=== PATIENT | female | born 1965 | race Caucasian/White ===

== ENCOUNTER → 2017-12-10 | Outpatient (CLI) | payer OTHER ==
[~2017-12-10] MED LIST: EPP3/2 IM
== END | disposition home or self-care (01) ==
LOC: C.PAPS 08:06
PROVIDERS: ATTEND Obstetrics & Gynecology
DX: Z12.4 Encounter for screening for malignant neoplasm of cervix (principal)

== ENCOUNTER 2017-12-20 16:32 | Observation (INO) | payer OTHER ==
[~2017-12-20] VITALS: Ht 162.6 cm; Wt 73.3 kg
[2017-12-20] MEDS ORDERED: SODIUM CHLORIDE 0.9% 1000ML 1,000 ML IV STA (16:42)
[2017-12-20] MEDS ORDERED: PROMETHAZINE HCL INJ 25 MG in SODIUM CHLORIDE 0.9% 50ML 50 ML IV STA (16:42)
[2017-12-20] MEDS ORDERED: DiphenhydrAMINE HCL 50 MG/ML VIAL IV STA ×2 (16:42→18:40)
[2017-12-20 17:14] LABS: BASO % 0.3 %; BASO ABS # 0.03 K/uL (0-0.2); EOS % 0.5 %; EOS ABS # 0.05 K/uL (0-0.5); HEMATOCRIT 43.1 % (37-47); HEMOGLOBIN 14.6 g/dL (12.0-16.0); IG# 0.02 K/uL (0.00-0.02); LYMPH % 11.8 %; LYMPH ABS # 1.11 K/uL (1.2-3.4); MEAN CELL VOLUME 86.4 fL (80-100); MEAN CORPUSCULAR HEMOGLOBIN 29.3 pg (25-34); MEAN CORPUSCULAR HGB CONC 33.9 g/dl (32-36); MEAN PLATELET VOLUME 9.4 fL (7.4-10.4); MONO % 5.9 %; MONO ABS # 0.55 K/uL (0.11-0.59); NEUT % 81.3 %; NEUT ABS # 7.62 K/uL (1.4-6.5); PLATELET COUNT 343 K/uL (130-400); RED CELL DISTRIBUTION WIDTH CV 14.3 % (11.5-14.5); RED CELL DISTRIBUTION WIDTH SD 44.6 fL (36.4-46.3); WHITE BLOOD COUNT 9.38 K/uL (4.8-10.8)
--- NOTE | 2017-12-20 17:21 | EMERGENCY ROOM VISIT NOTE ---
History Report prepared by Christie: Bisi Hogan Under the Supervision of: Yas OchoaO. First contact with patient: 16:39 Chief Complaint: HEADACHE Stated Complaint: HEADACHES, NAUSEA History of Present Illness The patient is a 52 year old female who presents to the Emergency Room with complaints of a persistent headache that began 3 days ago. She reports that her headache progressively worsened with time, noting that she began experiencing generalized weakness and nausea. She describes her headache as being in the front of her head and radiating all the way to the back. The patient states that she has been laying in bed for the past 2 days due to the intensity of her symptoms. She notes that she took Aleve and Tylenol, which did not help relieve her symptoms. Her states that she began vomiting shortly after taking some migraine medication. Today, the patient states that she has been slurring her words and continues to feel weak and sore throughout her body. She denies a history of headaches, noting that she does not take any daily medications besides vitamins. The patient states she had breast cancer in the same spot twice, noting it did not spread to any other parts of her body. She mentioned that she is a smoker, but has been smoking much less recently, noting that she only smoked 3 cigarettes yesterday. Source of History: patient Onset: 3 days ago Position: head Quality: other (headache) Timing: other (persistent) Associated Symptoms: + nausea Note: Associated symptoms include: generalized weakness, sore throughout body, and slurring her words. Review of Systems See HPI for pertinent positives & negatives. A total of 10 systems reviewed and were otherwise negative. Past Medical & Surgical Medical Problems: (1) Headache (2) Hypertension (3) Slurred speech (4) Stomach problems Family History Cancer Heart disease Hypertension Social History Smoking Status: Current Every Day Smoker (5 cigs daily) Smokeless Tobacco Use: No Alcohol Use: occasionally (1 drink) Drug Use: none Marital Status: Housing Status: lives with significant other Occupation Status: student Current/Historical Medications Scheduled Epinephrine (Epipen), 0.3 MG IM UD Allergies Coded Allergies: BEE STING (Verified Allergy, Unknown, SHORTNESS OF BREATH, 12/20/17) Physical Exam Vital Signs Date Time Temp Pulse Resp B/P (MAP) Pulse Ox O2 Delivery O2 Flow Rate FiO2 12/20/17 22:31 166/111 12/20/17 22:30 73 21 12/20/17 22:00 60 172/105 93 Room Air 12/20/17 21:11 57 147/102 12/20/17 21:04 65 12/20/17 20:30 63 157/105 91 Room Air 12/20/17 19:32 67 160/103 12/20/17 18:21 73 17 179/126 96 12/20/17 17:10 95 Room Air 12/20/17 17:00 70 12/20/17 16:34 36.7 76 18 158/104 95 Room Air Physical Exam GENERAL: Patient is awake, alert, and in no acute distress. Patient is resting comfortably and showing no signs of anxiety EYES: The conjunctivae are clear. The pupils are round and reactive. EARS, NOSE, MOUTH AND THROAT: The nose is without any evidence of any deformity. Mucous membranes are moist tongue is midline NECK: The neck is nontender and supple. RESPIRATORY: Normal respiratory effort is noted there is no evidence of wheezing rhonchi or rales CARDIOVASCULAR: Regular rate and rhythm noted there no murmurs rubs or gallops normal S1 normal S2 GASTROINTESTINAL: The abdomen is soft. Bowel sounds are present in all quadrants. Abdomen is nontender MUSCULOSKELETAL/EXTREMITIES: There is no evidence of gross deformity full range of motion is noted in the hips and shoulders SKIN: There is no obvious evidence of any rash. There are no petechiae, pallor or cyanosis noted. NEUROLOGIC: Patient is awake alert and oriented x3 strength is symmetric patellar reflexes are 2+ bilaterally Medical Decision & Procedures ER Provider Diagnostic Interpretation: Radiology results as stated below per my review and radiologist interpretation: HEAD WITHOUT CONTRAST (CT) CT DOSE: 537.48 mGy.cm HISTORY: Mental status change WOLFE TECHNIQUE: Multiaxial CT images of the head were performed without the use of intravenous contrast. A dose lowering technique was utilized adhering to the principles of ALARA. Comparison: None. Findings: The paranasal sinuses and mastoid air cells are clear. The calvarium and skull base are intact. The ventricles and sulci are within normal limits. There is no mass, hematoma, midline shift, or acute infarct. Impression: No acute intracranial abnormality. The above report was generated using voice recognition software. It may contain grammatical, syntax or spelling errors. Electronically signed by: Morgan Sanchez M.D. 12/20/2017 5:41 PM Dictated Date/Time: 12/20/2017 5:40 PM HEAD ANGIO WITH CONTRAST CLINICAL HISTORY: Mental status change headache TECHNIQUE: Transaxial acquisition with multi axial reformatted images COMPARISON STUDY: None FINDINGS: All major intracranial vessels are intact. No evidence for aneurysm or major stenotic process. The left vertebral artery is small in caliber. Presumed congenital basis. All major components of the anterior middle and posterior cerebral circulation are unremarkable. IMPRESSION: Negative study The above report was generated using voice recognition software. It may contain grammatical, syntax or spelling errors. Electronically signed by: Morgan Sanchez M.D. 12/20/2017 7:19 PM Dictated Date/Time: 12/20/2017 7:18 PM Laboratory Results 12/20/17 16:18 Red Blood Count 4.99, Mean Corpuscular Volume 86.4, Mean Corpuscular Hemoglobin 29.3, Mean Corpuscular Hemoglobin Concent 33.9, Mean Platelet Volume 9.4, Neutrophils (%) (Auto) 81.3, Lymphocytes (%) (Auto) 11.8, Monocytes (%) (Auto) 5.9, Eosinophils (%) (Auto) 0.5, Basophils (%) (Auto) 0.3, Neutrophils # (Auto) 7.62, Lymphocytes # (Auto) 1.11, Monocytes # (Auto) 0.55, Eosinophils # (Auto) 0.05, Basophils # (Auto) 0.03 12/20/17 16:18 Test 12/20/17 16:18 12/20/17 16:58 12/20/17 20:10 White Blood Count 9.38 K/uL (4.8-10.8) Red Blood Count 4.99 M/uL (4.2-5.4) Hemoglobin 14.6 g/dL (12.0-16.0) Hematocrit 43.1 % (37-47) Mean Corpuscular Volume 86.4 fL (80-100) Mean Corpuscular Hemoglobin 29.3 pg (25-34) Mean Corpuscular Hemoglobin Concent 33.9 g/dl (32-36) Platelet Count 343 K/uL (130-400) Mean Platelet Volume 9.4 fL (7.4-10.4) Neutrophils (%) (Auto) 81.3 % Lymphocytes (%) (Auto) 11.8 % Monocytes (%) (Auto) 5.9 % Eosinophils (%) (Auto) 0.5 % Basophils (%) (Auto) 0.3 % Neutrophils # (Auto) 7.62 K/uL (1.4-6.5) Lymphocytes # (Auto) 1.11 K/uL (1.2-3.4) Monocytes # (Auto) 0.55 K/uL (0.11-0.59) Eosinophils # (Auto) 0.05 K/uL (0-0.5) Basophils # (Auto) 0.03 K/uL (0-0.2) RDW Standard Deviation 44.6 fL (36.4-46.3) RDW Coefficient of Variation 14.3 % (11.5-14.5) Immature Granulocyte % (Auto) 0.2 % Immature Granulocyte # (Auto) 0.02 K/uL (0.00-0.02) Erythrocyte Sedimentation Rate 41 mm/hr (0-21) Anion Gap 8.0 mmol/L (3-11) Est Creatinine Clear Calc Drug Dose 88.0 ml/min Estimated GFR () 110.0 Estimated GFR (Non- 94.9 BUN/Creatinine Ratio 21.6 (10-20) Calcium Level 9.1 mg/dl (8.5-10.1) Magnesium Level 1.9 mg/dl (1.8-2.4) Total Bilirubin 0.4 mg/dl (0.2-1) Direct Bilirubin 0.1 mg/dl (0-0.2) Aspartate Amino Transf (AST/SGOT) 19 U/L (15-37) Alanine Aminotransferase (ALT/SGPT) 22 U/L (12-78) Alkaline Phosphatase 92 U/L (45-117) C-Reactive Protein 0.50 mg/dl (0-0.29) Total Protein 7.4 gm/dl (6.4-8.2) Albumin 4.0 gm/dl (3.4-5.0) Thyroid Stimulating Hormone (TSH) 0.679 uIu/ml (0.300-4.500) Hepatitis C Antibody Screen NEG (NEG) Procalcitonin < 0.05 ng/ml (0-0.5) Lyme Disease IgG Antibody NEG (NEG) Lyme Disease IgM Antibody NEG (NEG) CSF Color COLORLESS CSF Appearance CLEAR CSF WBC 418 /uL (0-5) CSF RBC 30 /uL (0) CSF Xanthrochromic NO XANTHOCHROMIA CSF Cell Count Tube # 1 CSF Mononuclear WBCs % 99.0 % CSF Polynuclear WBCs (%) 1.0 % CSF Chemistry Tube # 2 CSF Glucose 42 mg/dl (40-70) CSF Total Protein 91.1 mg/dl (15.0-45.0) Laboratory results per my review. Medications Administered Medications (Trade) Dose Ordered Sig/Stacie Route Start Time Stop Time Status Last Admin Dose Admin Sodium Chloride 1,000 ml @ 999 mls/hr Q1H1M STAT IV 12/20/17 16:42 12/20/17 17:42 DC 12/20/17 17:09 999 MLS/HR Diphenhydramine HCl (Benadryl Inj) 25 mg NOW STAT IV 12/20/17 16:42 12/20/17 16:43 DC 12/20/17 17:08 25 MG Promethazine HCl 25 mg/Sodium Chloride 51 ml @ 204 mls/hr NOW STAT IV 12/20/17 16:42 12/20/17 16:56 DC 12/20/17 17:10 204 MLS/HR Ketorolac Tromethamine (Toradol Inj) 30 mg NOW STAT IV 12/20/17 18:05 12/20/17 18:06 DC 12/20/17 18:14 30 MG Morphine Sulfate (MoRPHine SULFATE INJ) 4 mg Q15M PRN IV 12/20/17 18:45 12/20/17 23:44 DC 12/20/17 18:46 4 MG Diphenhydramine HCl (Benadryl Inj) 25 mg NOW STAT IV 12/20/17 18:40 12/20/17 18:41 DC 12/20/17 18:40 25 MG Ondansetron HCl (Zofran Inj) 4 mg NOW STAT IV 12/20/17 18:44 12/20/17 18:45 DC 12/20/17 18:46 4 MG Lidocaine HCl (Buffered Lidocaine 1% Inj) 20 ml ONE ONCE INFIL 12/20/17 20:00 12/20/17 20:02 DC 12/20/17 20:00 20 ML Ceftriaxone Sodium (Rocephin Inj) 2 gm NOW STAT IV 12/20/17 21:37 12/20/17 21:39 DC 12/20/17 21:53 2 GM Dexamethasone Sodium Phosphate (Decadron Inj) 10 mg NOW STAT IV 12/20/17 21:37 12/20/17 21:39 DC 12/20/17 21:52 10 MG Acyclovir Sodium 800 mg/Dextrose 266 ml @ 265 mls/hr ONE STAT IV 12/20/17 21:46 12/20/17 22:46 DC 12/20/17 22:37 265 MLS/HR ED Course 1640: The patient was evaluated in room A3. A complete history and physical examination were performed. 1642: Ordered Promethazine HCL 25mg/ Sodium Chloride 51ml @ 204 mls/hr IV, Benadryl Inj 25mg IV, and Sodium Chloride 1000ml @ 999 mls/hr IV. 1805: Ordered Toradol Inj 30mg IV. 1838: The patient had a bad reaction to the medication. 1840: Ordered Benadryl Inj 25mg IV. 1844: Ordered Zofran Inj 4mg IV. 184: Ordered Morphine Sulfate 4mg IV. 1900: Ordered Ioversol 100ml IV. 194: Performing a lumbar puncture on the patient. 1999: Ordered Lidocaine HCl 20ml. 2136: Ordered Decadron Inj 10mg IV and Recephin Inj 2gm IV. 2142: I discussed the patient's case with Thad Cano. The patient will be evaluated for further management. 2145: Ordered Acyclovir Sodium 800mg/ Dextrose 266ml @ 165 mls/hr IV. 2155: I revaluated the patient, who was resting. I updated her on test findings and the treatment plan. She verbalized complete understanding and agreement. Medical Decision Prior records/ancillary studies reviewed. Additional history obtained from her . Triage Nursing notes reviewed. The patient's history was concerning for headache. Differential diagnosis: Etiologies such as migraine headache, meningitis, sinusitis, CO exposure, ICH, SAH, infection, tumor, headache, sinus thrombosis, arterial dissection, as well as others were entertained. The patient is a 52-year-old female who presented to the emergency department for an evaluation of headache. She presented to the emergency department with her significant other. The patient did not have any trauma. Initially she was awake alert and oriented 3 and had no focal neurologic deficits or meningismus. The patient visited a friend who is diagnosed with meningitis. The patient was treated with IV fluids IV pain medicine and IV anti-medics. She started to have worsening confusion. I thought this confusion was secondary to a medication effect but the more I reevaluated the patient I felt that her condition was changing. The patient had a CT without contrast but then a CT angiography of the brain. No acute intracranial abnormality was noted. For this reason a lumbar puncture was obtained which did reveal signs of meningitis. Given the patient's presentation I feel this could be related to encephalitis as well. She was treated with IV antibiotics as well as IV steroids. I discussed patient's laboratory and radiographic studies with her. I also discussed her case with the on-call Thad hospitalist. They have agreed to evaluate the patient in the emergency department for further management and disposition. Medication Reconcilliation Current Medication List: was personally reviewed by me Blood Pressure Screening Patient's blood pressure: Elevated blood pressure Blood pressure disposition: Referred to PCP (hospitalist) Consults Time Called: 2142 Consulting Physician: Thad Cano- hospitalist Returned Call: 2142 I discussed the patient's case with Thad Cano. The patient will be evaluated for further management. Impression Primary Impression: Meningitis Additional Impressions: Headache Encephalitis Critical Care I have personally spent greater than 45 minutes of critical care time in the direct management of this patient. This includes bedside care, interpretation of diagnostic studies, and testing, discussion with consultants, patient, and family members, and other required patient management activities. This 45 minutes is in excess of all separately billable procedures. Scribe Attestation The scribe's documentation has been prepared under my direction and personally reviewed by me in its entirety. I confirm that the note above accurately reflects all work, treatment, procedures, and medical decision making performed by me. Departure Information Dispostion Being Evaluated By Hospitalist Referrals No Doctor, Assigned (PCP) Forms HOME CARE DOCUMENTATION FORM, IMPORTANT VISIT INFORMATION Patient Instructions My [facility] Problem Qualifiers Additional Impressions: Headache Headache type: unspecified Headache chronicity pattern: acute headache Intractability: not intractable Qualified Codes: R51 - Headache
--- NOTE | 2017-12-20 17:42 | DIAGNOSTIC IMAGING REPORT ---
HEAD WITHOUT CONTRAST (CT) CT DOSE: 537.48 mGy.cm HISTORY: Mental status change WOLFE TECHNIQUE: Multiaxial CT images of the head were performed without the use of intravenous contrast. A dose lowering technique was utilized adhering to the principles of ALARA. Comparison: None. Findings: The paranasal sinuses and mastoid air cells are clear. The calvarium and skull base are intact. The ventricles and sulci are within normal limits. There is no mass, hematoma, midline shift, or acute infarct. Impression: No acute intracranial abnormality. The above report was generated using voice recognition software. It may contain grammatical, syntax or spelling errors. Electronically signed by: Morgan Sanchez M.D. 12/20/2017 5:41 PM Dictated Date/Time: 12/20/2017 5:40 PM
[2017-12-20 17:47] LABS: CALCIUM 9.1 mg/dl (8.5-10.1); CREATININE 0.72 mg/dl (0.60-1.20); POTASSIUM 3.8 mmol/L (3.5-5.1)
[2017-12-20 17:50] LABS: TOTAL PROTEIN 7.4 gm/dl (6.4-8.2)
[2017-12-20] MEDS ORDERED: KETOROLAC TROMETHAMINE 30 MG/ML VIAL IV STA (18:05)
[2017-12-20] MEDS ORDERED: ONDANSETRON INJ 2 MG/ML 2 ML VIAL IV STA (18:44)
[2017-12-20] MEDS ORDERED: ONDANSETRON INJ 2 MG/ML 2 ML VIAL ONE (18:45)
[2017-12-20] MEDS ORDERED: MoRPHine SULFATE 4 MG/ML 1 ML CARP\\VIAL IV PRN (18:45)
[2017-12-20] MEDS ORDERED: OPTIRAY 320 IV PRN (19:00)
--- NOTE | 2017-12-20 19:20 | DIAGNOSTIC IMAGING REPORT ---
HEAD ANGIO WITH CONTRAST CLINICAL HISTORY: Mental status change headache TECHNIQUE: Transaxial acquisition with multi axial reformatted images COMPARISON STUDY: None FINDINGS: All major intracranial vessels are intact. No evidence for aneurysm or major stenotic process. The left vertebral artery is small in caliber. Presumed congenital basis. All major components of the anterior middle and posterior cerebral circulation are unremarkable. IMPRESSION: Negative study The above report was generated using voice recognition software. It may contain grammatical, syntax or spelling errors. Electronically signed by: Morgan Sanchez M.D. 12/20/2017 7:19 PM Dictated Date/Time: 12/20/2017 7:18 PM
[2017-12-20] MEDS ORDERED: LIDOCAINE 1% BUFFERED INJ 5 ML VIAL INFIL ONE (20:00)
[2017-12-20 20:36] LABS: CSF GLUCOSE 42 mg/dl (40-70); CSF TOTAL PROTEIN 91.1 mg/dl (15.0-45.0)
[2017-12-20] MEDS ORDERED: CEFTRIAXONE SOD INJ 1 GM ADDVIAL IV STA (21:37)
[2017-12-20] MEDS ORDERED: DEXAMETHASONE SOD INJ 4 MG/ML VIAL IV STA (21:37)
[2017-12-20] MEDS ORDERED: ACYCLOVIR SOD INJ 800 MG in DEXTROSE 5% 250ML 250 ML IV STA (21:46)
[2017-12-20] MEDS ORDERED: PROCHLORPERAZINE INJ 5 MG in SYRINGE 4 ML IV PRN (23:30)
[2017-12-20] MEDS ORDERED: HYDROmorphone INJ 0.5 MG/0.5 ML SYR IV PRN (23:30)
[2017-12-20] MEDS ORDERED: LORAZEPAM 2 MG/ML 1 ML VIAL IV PRN (23:30)
[2017-12-20] MEDS ORDERED: IV FLUIDS COMPLETED PRN (23:45)
[2017-12-21] VITALS (11 sets, daily range): BP systolic 130–168; BP diastolic 81–100; PULSE 57–78; TEMP 36.7–36.9; O2SAT 90–96; Ht 162.6 cm; Wt 73.3 kg
[2017-12-21] MEDS ORDERED: GADAVIST IV PRN (00:15)
[2017-12-21] MEDS ORDERED: NSS + 20MEQ KCL 1000ML 1,000 ML IV ONE (00:30)
[2017-12-21] MEDS ORDERED: LISINOPRIL 2.5 MG TAB PO ONE (01:24)
--- NOTE | 2017-12-21 06:43 | DIAGNOSTIC IMAGING REPORT ---
MRI OF THE BRAIN WITHOUT AND WITH IV CONTRAST CLINICAL HISTORY: Worsening headaches COMPARISON STUDY: CT scan dated 12/20/2017 TECHNIQUE: MRI of the brain was performed from the vertex to the skull base utilizing various T1 and T2 weighted sequences. Following the IV administration of 7 mL of Gadavist contrast, additional enhanced images were obtained. FINDINGS: Sagittal T1, axial diffusion, proton density and T2 weighted axial, coronal FLAIR, and pre and post axial T1-weighted images were acquired. These were supplemented with post gadolinium coronal T1 weighted images. No intra or extra-axial mass lesions are visualized. Axial diffusion-weighted images reveal no evidence of acute or subacute infarction. There is no evidence of ventricular dilatation. Proton density T2-weighted and FLAIR images reveal scattered foci of increased T2 signal within the white matter, likely on a small vessel basis. There are no abnormal flow voids. There is no evidence of pathologic enhancement. IMPRESSION: No acute intracranial findings. No evidence of acute or subacute infarction. No evidence of intracranial mass. Electronically signed by: Dylan Corrigan M.D. 12/21/2017 6:41 AM Dictated Date/Time: 12/21/2017 6:39 AM
--- NOTE | 2017-12-21 07:06 | DIAGNOSTIC IMAGING REPORT ---
MR ANGIOGRAM OF THE BRAIN CLINICAL HISTORY: Headache. COMPARISON STUDY: CT angiogram of the brain dated 12/20/2017. MRI of the brain performed concurrently on 12/20/2017. TECHNIQUE: 3-D [id number] MR angiography of the intracranial circulation is performed. 3-D tumble views are created and assessed. IV contrast was not administered for this examination. FINDINGS: The internal carotid arteries are widely patent bilaterally, as are the anterior and middle cerebral arteries. The vertebrobasilar system and posterior cerebral arteries are widely patent. The right vertebral artery is dominant. There is no aneurysm, high-grade stenosis, or focal vessel cutoff seen throughout the intracranial circulation. The brain parenchyma is normal as visualized. IMPRESSION: Unremarkable MR angiogram of the brain. Electronically signed by: Bernardo Riley M.D. 12/21/2017 7:04 AM Dictated Date/Time: 12/21/2017 7:02 AM
--- NOTE | 2017-12-21 07:19 | DIAGNOSTIC IMAGING REPORT ---
CHEST ONE VIEW PORTABLE CLINICAL HISTORY: wheeze COMPARISON STUDY: Chest radiograph October 22, 2017. FINDINGS: Lung volumes are normal. No pneumothorax or pleural effusion is noted. Pulmonary vascularity is normal. No consolidation. Linear left basilar opacity is suggestive of atelectasis. Cardiac size is normal. Mediastinal contours are normal. Postoperative findings within the right breast/chest wall are noted. There may be a right breast implant. IMPRESSION: No acute cardiopulmonary findings. Electronically signed by: Allen Rodgers M.D. 12/21/2017 7:18 AM Dictated Date/Time: 12/21/2017 7:17 AM
--- NOTE | 2017-12-21 08:26 | HISTORY & PHYSICAL EXAMINATION ---
DATE OF ADMISSION: 12/20/2017 PRIMARY CARE PHYSICIAN: Dr. Silvestre CHIEF COMPLAINT: Headache. HISTORY OF PRESENT ILLNESS: History obtained from the patient, , records. Medical history significant for hypertension (refusing medication as per ), breast cancer status post bilateral mastectomy, radiation, hormonal therapy, ongoing tobacco abuse, hypothyroidism as per records. Recent confinement under surgery service on 05/26/2013 for mastectomy. A few days history of headache symptoms front going to the back, with neck discomfort, no trauma, some vomiting, no chest pain, no shortness of breath, low-grade fever at home, transient slurred speech as per . Patient is achy all over. Unaware of any tick bites. No previous episodes in the past. At the Emergency Room, the patient was given acyclovir, ceftriaxone, Decadron for possible [employer] infection after LP done. MEDICAL HISTORY: As above. SURGERIES: Mastectomy bilateral, breast reconstruction procedures, partial thyroidectomy, bilateral tubal ligation. HOME MEDICATIONS: None ALLERGIES: ALLERGIC TO BEE STING. FAMILY HISTORY: Lung cancer. PERSONAL AND SOCIAL HISTORY: Half pack daily. No chronic intake of alcoholic beverages. Factory employee. REVIEW OF SYSTEMS: As per HPI. All 10 systems reviewed. All other ROS negative. PHYSICAL EXAMINATION: VITAL SIGNS: Blood pressure was noted to be 179/126, later 160/80, pulse rate 76, RR 18, temperature 36, sats 95 on room air. GENERAL: Noted to be uncomfortable, in no respiratory distress. SKIN: Normal color, warm. HEENT: [place] palpebral conjunctivae. No ptosis. Dry mucosa. NECK: Some limitation in flexion. Some posterior neck tenderness. CHEST: Occasional wheeze. No tenderness. HEART: RRR, no murmur. ABDOMEN: Some distention, nontender. EXTREMITIES: No edema, no gross deformities, no tenderness. NEUROLOGIC EXAMINATION: Coherent. No gross focality except for some limitation in neck flexion. LABORATORY DATA: Hemoglobin 14.6, hematocrit 40.1, white cell count 9.8, platelets 240. Sodium 137, potassium 3.8, chloride 102, CO2 27, BUN 16, creatinine 0.7, glucose 88. Procalcitonin was normal. UA ketones, occult blood. CT angio negative for pathology. CSF findings, WBC 416, total protein 91.1, clear, colorless, normal glucose. ASSESSMENT AND PLAN: 1. Headache with CSF pleocytosis not typical of bacterial meningitis Patient is not septic. poss viral meningitis vs noninfectious etio 2. Transient slurred speech secondary to illness ro TIA. 3. Hypertensive urgency Patient hesitant to take maintenance meds as per . 4. Breast cancer, status post-mastectomy, radiation. 5. Ongoing tobacco abuse. Observation PCU analgesia MRI of the brain, May need Neurology evaluation RE headache, abn csf Hold off on additional antibiotics and antivirals now until patient seen by Neurology initiate Lisinopril Nicotine patch p.r.n. DVT prophylaxis Lovenox subcutaneously. FULL CODE. Patient's requesting for updates from providers. Mr. Antonio Coughlinerika at [phone]. [facility]
[2017-12-21] MEDS: TRAMADOL HCL 50 MG TAB PO PRN (09:00)
--- NOTE | 2017-12-21 10:24 | Progress Note ---
Progress Note Date of Service Dec 21, 2017. Progress Note ID Consult Dictated #[id number] A/P: 1. Meningitis - suspect viral -Will restart ctx pending culture results -Will follow, thank you, discussed with primary
[2017-12-21] MEDS ORDERED: CEFTRIAXONE SOD INJ 2000 MG in DEXTROSE 5% 50ML IV ONE (11:00)
--- NOTE | 2017-12-21 11:12 | INFECT. DISEASE CONSULTATION ---
DATE OF CONSULTATION: 12/21/2017 HISTORY OF PRESENT ILLNESS: This is a 52-year-old female who was admitted to the hospital with 4 days' duration of headache that was not improving at home with multiple [id number] medications. She denies any visual complaints along with this. She denies any recent travel. She lives at home with her . She has dogs in the house. They are all up-to-date on vaccines. She has no travel recently. She works in the laboratory setting. She states that the headache began at the back of the neck and progressed through the past 3-4 days. She was not improving and subsequently came to the Emergency Room. In the ER, she did have a lumbar puncture which showed 460 white blood cells with 100% lymphocytes. Her Gram stain is negative. Her protein was elevated at 91. Glucose was normal. A Lyme CSF titer is pending. The serum titer is negative. No HSV PCR was done. A brain MRI was negative. Her sed rate is mildly elevated at 41. Her CRP is 0.5. Her procalcitonin is negative. She has been afebrile without leukocytosis since admission. She was given dexamethasone, Rocephin, and acyclovir in the Emergency Room, but no antibiotics were continued upon admission as it was suspected to be viral in etiology. Currently, she states she is feeling significantly better. She is anticipating discharge to home tomorrow. She states her headache has resolved. She has no neck stiffness. She has no visual complaints. She has no chest pain, cough, shortness of breath, nausea, vomiting, or diarrhea. She denies any myalgias or arthralgias. She has no skin rashes. Her remaining review of systems is unremarkable. PAST MEDICAL HISTORY: Her medical history is significant for hypertension, history of breast cancer with bilateral mastectomy and history of radiation, hypothyroidism. PAST SURGICAL HISTORY: As above in addition to thyroidectomy and tubal ligation. ALLERGIES: SHE HAS ALLERGIES TO BEE STING ONLY. FAMILY HISTORY: Noncontributory. SOCIAL HISTORY: Significant for tobacco use daily. She denies any alcohol or drug use. All remaining social history is as above. MEDICATIONS: Include lisinopril, Gadavist, Ultram, Ativan, Dilaudid. PHYSICAL EXAMINATION: VITAL SIGNS: She is afebrile and has been since admission. Pulse 78, respiratory rate 18, blood pressure 146/97, oxygen saturation is 95% on room air. GENERAL: She is awake, alert, and oriented x3. She is in no acute distress. HEENT: Mucous membranes are moist. Extraocular muscles are intact. There is no nuchal rigidity. HEART: Regular. LUNGS: Clear bilaterally. ABDOMEN: Soft, nontender, nondistended. There is no lower extremity edema. SKIN: Without rash. LABORATORY STUDIES: CBC reveals a white blood cell count of 9.3, hemoglobin 14.6, hematocrit 43.1, platelets 343. Sed rate is mildly elevated at 41. Chemistry panel: Sodium 137, potassium 3.8, chloride 102, bicarbonate 27, BUN 16, creatinine 0.7, glucose 88. CRP is 0.5. Procalcitonin is negative. TSH is normal. UA is negative. CSF is as above. Lyme screen is negative. Hep C screen is negative. CSF culture has many white blood cells, but no organisms. Imaging is as above. ASSESSMENT AND PLAN: Meningitis, likely viral in etiology. She will be maintained on Rocephin pending her Lyme and culture results. If negative, she likely will be discharged home tomorrow. She has had significant clinical improvement. This was discussed with her primary service. Thank you for this consultation.
--- NOTE | 2017-12-21 11:28 | Progress Note ---
Internal Med Progress Note Date of Service: Dec 21, 2017. Provider Documentation: SUBJECTIVE: The patient was seen and examined She was admitted with the headache for the last 3 days associated with the neck pain and generalized aches and pains and also fever with chills She complains to have nausea as well She underwent LP and the fluid examinations suggestive of viral infection Does not have any significant complaints and headache and neck pain seems improved OBJECTIVE: Vital Signs-as noted below Exam: General-no apparent distress at rest Eyes-normal, no photophobia ENT-normal Neck-supple, no neck stiffness Lungs-clear to auscultate bilaterally Heart-regular, no murmur appreciated Abdomen-benign, soft, nontender, bowel sounds present Extremities-no edema Neuro-alert, awake and oriented 3 No facial asymmetry, no dysarthria and no neck stiffness No focal sensory and/or motor deficit appreciated Lab data as noted below. ASSESSMENT & PLAN: Likely viral meningitis Headache with CSF pleocytosis, not typical of bacterial meningitis CSF white count is more than 400 with almost 100% monocytosis and protein count elevated to 91 Appreciate ID input and recommendation Neurology consulted-awaiting evaluation Waiting for a Lyme titer to come back Has been on ceftriaxone for now Symptomatically improved to normality Likely to go home tomorrow Breast cancer, status post-mastectomy, radiation. No acute issues Ongoing tobacco abuse. Advised quitting Hypertension, not on meds. Minimally elevated and received small dose of lisinopril Transient slurred speech, question of TIA. Doubt any TIA and/or stroke DVT prophylaxis Lovenox subcutaneously. FULL CODE. Discussed with the The patient's requesting for updates from providers Letterman at [phone], . Vital Signs: Date Time Temp Pulse Resp B/P (MAP) Pulse Ox O2 Delivery O2 Flow Rate FiO2 12/21/17 16:08 36.8 57 16 152/96 (114) 96 Room Air 12/21/17 12:00 95 Room Air 12/21/17 11:11 36.8 75 16 130/81 (97) 95 Room Air 12/21/17 09:47 78 18 146/97 (113) 95 Room Air 12/21/17 07:21 91 Room Air 12/21/17 07:09 36.7 68 17 157/91 (113) 91 Room Air 12/21/17 04:00 Room Air 12/21/17 03:07 36.9 65 18 163/88 (113) 91 Room Air 12/21/17 00:18 36.8 68 20 168/100 90 Room Air 12/20/17 23:30 37.0 72 16 160/108 93 12/20/17 23:01 159/97 12/20/17 23:00 65 18 91 Room Air 12/20/17 22:31 166/111 12/20/17 22:30 73 21 12/20/17 22:00 60 172/105 93 Room Air 12/20/17 21:11 57 147/102 12/20/17 21:04 65 12/20/17 20:30 63 157/105 91 Room Air 12/20/17 19:32 67 160/103 12/20/17 18:21 73 17 179/126 96 12/20/17 17:10 95 Room Air 12/20/17 17:00 70 Lab Results: Results Past 24 Hours Test 12/20/17 16:58 12/20/17 20:10 12/20/17 23:30 Range/Units Procalcitonin < 0.05 0-0.5 ng/ml Lyme Disease IgG Antibody NEG NEG Lyme Disease IgM Antibody NEG NEG CSF Color COLORLESS CSF Appearance CLEAR CSF WBC 418 0-5 /uL CSF RBC 30 0 /uL CSF Xanthrochromic NO XANTHOCHROMIA CSF Cell Count Tube # 1 CSF Mononuclear WBCs % 99.0 % CSF Polynuclear WBCs (%) 1.0 % CSF Chemistry Tube # 2 CSF Glucose 42 40-70 mg/dl CSF Total Protein 91.1 15.0-45.0 mg/dl Urine Color YELLOW Urine Appearance CLEAR CLEAR Urine pH 6.0 4.5-7.5 Urine Specific [place] 1.042 1.000-1.030 Urine Protein NEG NEG Urine Glucose (UA) NEG NEG Urine Ketones 2+ NEG Urine Occult Blood 3+ NEG Urine Nitrite NEG NEG Urine Bilirubin NEG NEG Urine Urobilinogen NEG NEG Urine Leukocyte Esterase NEG NEG Urine WBC (Auto) 1-5 0-5 /hpf Urine RBC (Auto) 10-30 0-4 /hpf Urine Hyaline Casts (Auto) 0 0-5 /lpf Urine Epithelial Cells (Auto) 10-20 0-5 /lpf Urine Bacteria (Auto) NEG NEG Microbiology Results 12/20/17 Gram Stain - Final, Resulted 12/20/17 CSF Culture - Preliminary, Resulted NO GROWTH TO DATE.
--- NOTE | 2017-12-21 14:43 | Neurology Consultation ---
Neurology Consultation Date of Consultation: Dec 21, 2017. Attending Physician: Dalia Marcus M.D. Primary Care Physician: Morgan Silvestre M.D. Reason for Consultation: headache History of Present Illness Source: patient Katty is a 52 year old female with PMH HTN, breast cancer, right, status post bilateral mastectomy, radiation, hormonal therapy, ongoing tobacco abuse, hypothyroidism. surgery service on 05/26/2013 for prophylactic mastectomy. She presented with a few days history of headache symptoms, frontal, going to the back with neck discomfort, no trauma, some vomiting, no chest pain, no shortness of breath, low-grade fever at home, transient slurred speech, the patient is achy. She states she had a remote history of tick bite with attachment but nothing recently. she was given acyclovir, ceftriaxone,Decadron for possible [employer] infection. Her blood pressure was high but she does not want it treated. Currently she states she is back to her baseline. denies headache, neck stiffness, vision changes, one sided weakness, numbness, tingling, fever chills night sweats, N, V. Past Medical/Surgical History Medical Problems: (1) Meningitis Status: Acute Social History Smoking Status: Current every day smoker Smokeless Tobacco Use: No Drug Use: none Marital Status: Housing Status: lives with significant other Occupation Status: student Allergies Coded Allergies: BEE STING (Verified Allergy, Unknown, SHORTNESS OF BREATH, 12/20/17) Current Inpatient Medications Current Inpatient Medications Medications (Trade) Dose Ordered Sig/Stacie Route Start Time Stop Time Status Last Admin Dose Admin Ioversol (Optiray 320) 100 ml UD PRN IV 12/20/17 19:00 12/24/17 18:59 Tramadol HCl (Ultram Tab) not relieved by tylenol @ Q6H PRN PO 12/20/17 23:30 01/19/18 23:29 12/21/17 09:00 50 MG Prochlorperazine Edisylate 5 mg/ Syringe 5 ml @ 5 mls/min Q6H PRN IV 12/20/17 23:30 01/19/18 23:29 Lorazepam (Ativan Inj) 0.5 mg Q4H PRN IV 12/20/17 23:30 01/19/18 23:29 Hydromorphone HCl (Dilaudid Inj) 0.5 mg Q3H PRN IV 12/20/17 23:30 01/03/18 23:29 Miscellaneous (Iv Fluids Completed) 1 ea PRN PRN N/A 12/20/17 23:45 12/20/18 23:44 Gadobutrol (Gadavist) 7 mmol UD PRN IV 12/21/17 00:15 12/25/17 00:14 Lisinopril (Zestril Tab) 2.5 mg QAM PO 12/22/17 09:00 01/21/18 08:59 Ceftriaxone Sodium 2000 mg/ Dextrose 70 ml @ 100 mls/hr Q12H IV 12/21/17 23:00 12/31/17 22:59 Physical Exam Vital Signs (Past 24 Hrs): Date Time Temp Pulse Resp B/P (MAP) Pulse Ox O2 Delivery O2 Flow Rate FiO2 12/21/17 12:00 95 Room Air 12/21/17 11:11 36.8 75 16 130/81 (97) 95 Room Air 12/21/17 09:47 78 18 146/97 (113) 95 Room Air 12/21/17 07:21 91 Room Air 12/21/17 07:09 36.7 68 17 157/91 (113) 91 Room Air 12/21/17 04:00 Room Air 12/21/17 03:07 36.9 65 18 163/88 (113) 91 Room Air 12/21/17 00:18 36.8 68 20 168/100 90 Room Air 12/20/17 23:30 37.0 72 16 160/108 93 12/20/17 23:01 159/97 12/20/17 23:00 65 18 91 Room Air 12/20/17 22:31 166/111 12/20/17 22:30 73 21 12/20/17 22:00 60 172/105 93 Room Air 12/20/17 21:11 57 147/102 12/20/17 21:04 65 12/20/17 20:30 63 157/105 91 Room Air 12/20/17 19:32 67 160/103 12/20/17 18:21 73 17 179/126 96 12/20/17 17:10 95 Room Air 12/20/17 17:00 70 12/20/17 16:34 36.7 76 18 158/104 95 Room Air Physical Exam: Constitutional: appearance nourished, healthy and normal Ears, Nose, Mouth and Throat: mucous membranes moist, no injection and skin normal, eyes normal Cardiovascular: normal S-1 and S-2 and regular rate and rhythm Respiratory: course breath sounds Musculoskeletal: no peripheral edema and good distal pulses Skin: no stigmata of neurocutaneous disease noted and normal and intact Eyes: extraocular muscles intact (EOMI) and pupils equal, round and reactive to light (PERRL) NEUROLOGIC EXAMINATION: Mental status: Alert and interactive Oriented to full date and location Oriented to person Speech fluent with no evidence of aphasia Cranial Nerves smile eye brow raise symmetric Reflexes: Deep tendon reflexes were symmetrical and graded 2/5. Plantar responses were flexor. Sensory: to vibration or GT proprioception Coordination: finger to nose with no bi pass, resting or reaching tremor Gait/Stance: Posture normal. Motor: Negative for pronator drift of out stretched arms with eyes closed. Strength: biceps triceps hand frame wirer 5/5 bilaterally, hip flex ext plantar flex ext 5/5 bilaterally Laboratory Results Past 24 Hours: 12/20/17 16:18 Red Blood Count 4.99, Mean Corpuscular Volume 86.4, Mean Corpuscular Hemoglobin 29.3, Mean Corpuscular Hemoglobin Concent 33.9, Mean Platelet Volume 9.4, Neutrophils (%) (Auto) 81.3, Lymphocytes (%) (Auto) 11.8, Monocytes (%) (Auto) 5.9, Eosinophils (%) (Auto) 0.5, Basophils (%) (Auto) 0.3, Neutrophils # (Auto) 7.62, Lymphocytes # (Auto) 1.11, Monocytes # (Auto) 0.55, Eosinophils # (Auto) 0.05, Basophils # (Auto) 0.03 12/20/17 16:18 Test 12/20/17 16:18 12/20/17 16:58 12/20/17 20:10 12/20/17 23:30 White Blood Count 9.38 K/uL (4.8-10.8) Red Blood Count 4.99 M/uL (4.2-5.4) Hemoglobin 14.6 g/dL (12.0-16.0) Hematocrit 43.1 % (37-47) Mean Corpuscular Volume 86.4 fL (80-100) Mean Corpuscular Hemoglobin 29.3 pg (25-34) Mean Corpuscular Hemoglobin Concent 33.9 g/dl (32-36) Platelet Count 343 K/uL (130-400) Mean Platelet Volume 9.4 fL (7.4-10.4) Neutrophils (%) (Auto) 81.3 % Lymphocytes (%) (Auto) 11.8 % Monocytes (%) (Auto) 5.9 % Eosinophils (%) (Auto) 0.5 % Basophils (%) (Auto) 0.3 % Neutrophils # (Auto) 7.62 K/uL (1.4-6.5) Lymphocytes # (Auto) 1.11 K/uL (1.2-3.4) Monocytes # (Auto) 0.55 K/uL (0.11-0.59) Eosinophils # (Auto) 0.05 K/uL (0-0.5) Basophils # (Auto) 0.03 K/uL (0-0.2) RDW Standard Deviation 44.6 fL (36.4-46.3) RDW Coefficient of Variation 14.3 % (11.5-14.5) Immature Granulocyte % (Auto) 0.2 % Immature Granulocyte # (Auto) 0.02 K/uL (0.00-0.02) Erythrocyte Sedimentation Rate 41 mm/hr (0-21) Anion Gap 8.0 mmol/L (3-11) Est Creatinine Clear Calc Drug Dose 88.0 ml/min Estimated GFR () 110.0 Estimated GFR (Non- 94.9 BUN/Creatinine Ratio 21.6 (10-20) Calcium Level 9.1 mg/dl (8.5-10.1) Magnesium Level 1.9 mg/dl (1.8-2.4) Total Bilirubin 0.4 mg/dl (0.2-1) Direct Bilirubin 0.1 mg/dl (0-0.2) Aspartate Amino Transf (AST/SGOT) 19 U/L (15-37) Alanine Aminotransferase (ALT/SGPT) 22 U/L (12-78) Alkaline Phosphatase 92 U/L (45-117) C-Reactive Protein 0.50 mg/dl (0-0.29) Total Protein 7.4 gm/dl (6.4-8.2) Albumin 4.0 gm/dl (3.4-5.0) Thyroid Stimulating Hormone (TSH) 0.679 uIu/ml (0.300-4.500) Hepatitis C Antibody Screen NEG (NEG) Procalcitonin < 0.05 ng/ml (0-0.5) Lyme Disease IgG Antibody NEG (NEG) Lyme Disease IgM Antibody NEG (NEG) CSF Color COLORLESS CSF Appearance CLEAR CSF WBC 418 /uL (0-5) CSF RBC 30 /uL (0) CSF Xanthrochromic NO XANTHOCHROMIA CSF Cell Count Tube # 1 CSF Mononuclear WBCs % 99.0 % CSF Polynuclear WBCs (%) 1.0 % CSF Chemistry Tube # 2 CSF Glucose 42 mg/dl (40-70) CSF Total Protein 91.1 mg/dl (15.0-45.0) Urine Color YELLOW Urine Appearance CLEAR (CLEAR) Urine pH 6.0 (4.5-7.5) Urine Specific [place] 1.042 (1.000-1.030) Urine Protein NEG (NEG) Urine Glucose (UA) NEG (NEG) Urine Ketones 2+ (NEG) Urine Occult Blood 3+ (NEG) Urine Nitrite NEG (NEG) Urine Bilirubin NEG (NEG) Urine Urobilinogen NEG (NEG) Urine Leukocyte Esterase NEG (NEG) Urine WBC (Auto) 1-5 /hpf (0-5) Urine RBC (Auto) 10-30 /hpf (0-4) Urine Hyaline Casts (Auto) 0 /lpf (0-5) Urine Epithelial Cells (Auto) 10-20 /lpf (0-5) Urine Bacteria (Auto) NEG (NEG) Imaging CTA head - Negative study MRA head- Unremarkable MR angiogram of the brain. MRI brain with and without- : No acute intracranial findings. No evidence of acute or subacute infarction. No evidence of intracranial mass. Impression 52 year old male s/p headache, fever, neck pain Plan 1. ID - consult for direction of therapy 2. headaches resolved - no history of migraines 3. smoking cessation is recommended 4. discharge pending Lyme titer 5. MRI MRA CTA brain all no acute finding 6. no further neurologic follow up needed. I have seen and discussed above patient with Dr Oliver Mullins, neurology Agree with the above assessment and plan Diagnosis is that of aseptic meningitis and the headache is well explained on this basis There is no prior headache or major health issue Infectious disease is following and manging her antibiotics Neurology will sign off and see prn but unless headaches develop after recovery we do not need to see her in follow up Oliver Mullins MD
[2017-12-21] MEDS: CEFTRIAXONE SOD INJ 2,000 MG in DEXTROSE 5% 50ML 50 ML IV SCH (22:31)
[2017-12-22] VITALS (8 sets, daily range): BP systolic 129–157; BP diastolic 86–99; PULSE 54–69; TEMP 36.6–36.8; O2SAT 92–98
[2017-12-22 07:30] LABS: HEMATOCRIT 39.4 % (37-47); HEMOGLOBIN 13.4 g/dL (12.0-16.0); MEAN CELL VOLUME 85.8 fL (80-100); MEAN CORPUSCULAR HEMOGLOBIN 29.2 pg (25-34); PLATELET COUNT 330 K/uL (130-400); RED CELL DISTRIBUTION WIDTH CV 14.5 % (11.5-14.5); RED CELL DISTRIBUTION WIDTH SD 45.2 fL (36.4-46.3)
[2017-12-22 07:58] LABS: CALCIUM 8.2 mg/dl (8.5-10.1); CREATININE 0.73 mg/dl (0.60-1.20); POTASSIUM 3.5 mmol/L (3.5-5.1)
[2017-12-22] MEDS: TRAMADOL HCL 50 MG TAB PO PRN (08:15)
[2017-12-22] MEDS ORDERED: LISINOPRIL 2.5 MG TAB PO SCH (09:00)
[2017-12-22] MEDS: CEFTRIAXONE SOD INJ 2,000 MG in DEXTROSE 5% 50ML 50 ML IV SCH (15:09)
--- NOTE | 2017-12-22 15:09 | Progress Note ---
Subjective Date of Service: Dec 22, 2017. Subjective Pt evaluation today including: conversation w/ patient, physical exam, lab review, review of studies, review of inpatient medication list Saw/examined the patient in room 279 She's doing well; dressed up in her home clothes ready to be discharged Denies any symptoms, has intermittent headaches; no fevers/chills, no nausea/ vomiting/diarrhea Problem List Medical Problems: (1) Meningitis Status: Acute Review of Systems Constitutional: No fever, No chills, No weakness ENT: + problem reported (+intermittent headache) Respiratory: No cough, No sputum, No shortness of breath Cardiac: No chest pain Abdomen: No pain, No nausea, No vomiting, No diarrhea Medications Current Inpatient Medications Medications (Trade) Dose Ordered Sig/Stacie Route Start Time Stop Time Status Last Admin Dose Admin Ioversol (Optiray 320) 100 ml UD PRN IV 12/20/17 19:00 12/24/17 18:59 Tramadol HCl (Ultram Tab) not relieved by tylenol @ Q6H PRN PO 12/20/17 23:30 01/19/18 23:29 12/22/17 08:15 50 MG Prochlorperazine Edisylate 5 mg/ Syringe 5 ml @ 5 mls/min Q6H PRN IV 12/20/17 23:30 01/19/18 23:29 Lorazepam (Ativan Inj) 0.5 mg Q4H PRN IV 12/20/17 23:30 01/19/18 23:29 Hydromorphone HCl (Dilaudid Inj) 0.5 mg Q3H PRN IV 12/20/17 23:30 01/03/18 23:29 12/22/17 09:54 0.5 MG Miscellaneous (Iv Fluids Completed) 1 ea PRN PRN N/A 12/20/17 23:45 12/20/18 23:44 Gadobutrol (Gadavist) 7 mmol UD PRN IV 12/21/17 00:15 12/25/17 00:14 Lisinopril (Zestril Tab) 2.5 mg QAM PO 12/22/17 09:00 01/21/18 08:59 12/22/17 08:16 2.5 MG Ceftriaxone Sodium 2000 mg/ Dextrose 70 ml @ 100 mls/hr Q12H IV 12/21/17 23:00 12/31/17 22:59 12/21/17 22:31 100 MLS/HR Objective Vital Signs Date Time Temp Pulse Resp B/P (MAP) Pulse Ox O2 Delivery O2 Flow Rate FiO2 12/22/17 14:28 36.8 67 20 129/86 (100) 94 Room Air 12/22/17 11:51 36.6 54 18 144/87 (106) 93 Room Air 12/22/17 08:00 97 Room Air 12/22/17 07:39 36.6 63 18 145/99 (114) 94 Room Air 12/22/17 04:00 Room Air 12/22/17 04:00 36.7 69 16 130/88 (102) 96 Room Air 12/22/17 00:38 36.6 56 18 157/96 (116) 92 Room Air 12/22/17 00:00 Room Air 12/21/17 20:00 95 Room Air 12/21/17 19:50 36.7 73 18 159/98 (118) 95 Room Air 12/21/17 16:08 36.8 57 16 152/96 (114) 96 Room Air 12/21/17 16:00 95 Room Air Physical Exam General Appearance: no apparent distress Respiratory/Chest: chest non-tender, lungs clear, normal breath sounds, no respiratory distress, no accessory muscle use Cardiovascular: regular rate, rhythm, no edema, no murmur Extremities: normal inspection, no pedal edema Neurologic/Psychiatric: no motor/sensory deficits, alert, normal mood/affect Laboratory Results Last 24 Hours Test 12/22/17 07:19 White Blood Count 9.60 K/uL Red Blood Count 4.59 M/uL Hemoglobin 13.4 g/dL Hematocrit 39.4 % Mean Corpuscular Volume 85.8 fL Mean Corpuscular Hemoglobin 29.2 pg Mean Corpuscular Hemoglobin Concent 34.0 g/dl RDW Standard Deviation 45.2 fL RDW Coefficient of Variation 14.5 % Platelet Count 330 K/uL Mean Platelet Volume 9.0 fL Sodium Level 140 mmol/L Potassium Level 3.5 mmol/L Chloride Level 108 mmol/L Carbon Dioxide Level 27 mmol/L Anion Gap 5.0 mmol/L Blood Urea Nitrogen 12 mg/dl Creatinine 0.73 mg/dl Est Creatinine Clear Calc Drug Dose 86.5 ml/min Estimated GFR () 108.2 Estimated GFR (Non- 93.4 BUN/Creatinine Ratio 17.0 Random Glucose 79 mg/dl Calcium Level 8.2 mg/dl Assessment and Plan This is a 52 year old female with a past medical history of hypertension, breast cancer s/p bilateral mastectomy, radiation, hormonal therapy, ongoing tobacco abuse - presents with headaches, subsequently found to have likely viral meningitis Meningitis, likely Viral - CSF analysis, likely viral meningitis - Lyme CSF pending - has been on Rocephin on the off chance that this is Lyme related - appreciate ID input - hoping to discharge today; will await ID input - can likely call with Lyme results if positive HTN - started on Lisinopril 2.5mg, which she was to take at home but has been non- complaint - will discharge with this dose Tobacco Use Disorder - cut down smoking from 1PPD to 1/2PPD - counseled on cessation, patient will attempt DVT ppx - ambulation FULL CODE
[2017-12-22] MEDS ORDERED: LSN25 PO (15:10)
--- NOTE | 2017-12-22 15:13 | Progress Note ---
Subjective Date of Service: Dec 22, 2017. Subjective Pt evaluation today including: conversation w/ patient, physical exam, chart review, lab review pt seen in followup, feeling better. [place]jo resolved. no neck stiffness, no f/c. no abd pain no n/v/d. tolerating abx. csf cutlure negative. afebrile overnight. asking to go home. no visual complaints. all remaining ros reviewed and are negative. Problem List Medical Problems: (1) Meningitis Status: Acute Objective Vital Signs Date Time Temp Pulse Resp B/P (MAP) Pulse Ox O2 Delivery O2 Flow Rate FiO2 12/22/17 14:28 36.8 67 20 129/86 (100) 94 Room Air 12/22/17 11:51 36.6 54 18 144/87 (106) 93 Room Air 12/22/17 08:00 97 Room Air 12/22/17 07:39 36.6 63 18 145/99 (114) 94 Room Air 12/22/17 04:00 Room Air 12/22/17 04:00 36.7 69 16 130/88 (102) 96 Room Air 12/22/17 00:38 36.6 56 18 157/96 (116) 92 Room Air 12/22/17 00:00 Room Air 12/21/17 20:00 95 Room Air 12/21/17 19:50 36.7 73 18 159/98 (118) 95 Room Air 12/21/17 16:08 36.8 57 16 152/96 (114) 96 Room Air 12/21/17 16:00 95 Room Air Physical Exam General Appearance: WD/WN, no apparent distress Eyes: normal inspection, EOMI Neck: supple Respiratory/Chest: lungs clear, normal breath sounds, no respiratory distress Cardiovascular: regular rate, rhythm, no edema Abdomen: non tender, soft Extremities: non-tender, no pedal edema Neurologic/Psychiatric: alert, oriented x 3 Skin: normal color Laboratory Results Item Value Date Time Gram Stain - Final Complete 12/20/172009 Cerebral Spinal Fluid Last 24 Hours Test 12/22/17 07:19 White Blood Count 9.60 K/uL Red Blood Count 4.59 M/uL Hemoglobin 13.4 g/dL Hematocrit 39.4 % Mean Corpuscular Volume 85.8 fL Mean Corpuscular Hemoglobin 29.2 pg Mean Corpuscular Hemoglobin Concent 34.0 g/dl RDW Standard Deviation 45.2 fL RDW Coefficient of Variation 14.5 % Platelet Count 330 K/uL Mean Platelet Volume 9.0 fL Sodium Level 140 mmol/L Potassium Level 3.5 mmol/L Chloride Level 108 mmol/L Carbon Dioxide Level 27 mmol/L Anion Gap 5.0 mmol/L Blood Urea Nitrogen 12 mg/dl Creatinine 0.73 mg/dl Est Creatinine Clear Calc Drug Dose 86.5 ml/min Estimated GFR () 108.2 Estimated GFR (Non- 93.4 BUN/Creatinine Ratio 17.0 Random Glucose 79 mg/dl Calcium Level 8.2 mg/dl Assessment and Plan (1) Meningitis Assessment & Plan: likely viral in etiology, will stop abx, ok for d/c from ID standpoint, pt states she will return to ER if symptoms return.
--- NOTE | 2017-12-22 15:13 | Discharge Instructions ---
Discharge Instructions Date of Service Dec 22, 2017. Admission Reason for Admission: Headache, Slurred Speech Discharge Discharge Diagnosis / Problem: Viral Meningitis, high blood pressure Discharge Goals Goal(s): Decrease discomfort, Improve function, Diagnostic testing, Therapeutic intervention Activity Recommendations Activity Limitations: resume your previous activity . Instructions / Follow-Up Instructions / Follow-Up Please follow-up with Dr. Stanton (covering for Dr. Silvestre) on December 25 at 12:45PM * You can return to work after seeing primary care * You are prescribed Lisinopril 2.5mg daily for blood pressure Current Hospital Diet Patient's current hospital diet: Regular Diet Discharge Diet Recommended Diet: Regular Diet Pending Studies Studies pending at discharge: no Laboratory Results Lipid Panel Test 10/22/17 17:14 Range/Units Triglycerides Level 63 0-150 mg/dl Cholesterol Level 177 0-200 mg/dl HDL Cholesterol 59 mg/dl Cholesterol/HDL Ratio 3.0 LDL Cholesterol, Calculated 105 mg/dl Medical Emergencies . Who to Call and When: Medical Emergencies: If at any time you feel your situation is an emergency, please call 911 immediately. . Non-Emergent Contact Non-Emergency issues call your: Primary Care Provider . . "Provider Documentation" section prepared by Frances Ly. .
--- NOTE | 2017-12-22 15:16 | Discharge Summary ---
Discharge Summary Date of Service Dec 22, 2017. Discharge Summary Admission Date: Dec 20, 2017 at 22:49 Discharge Date: Dec 22, 2017 Discharge Disposition: Home Principal Diagnosis: Viral Meningitis HTN Medication Reconciliation New Medications: Lisinopril (Lisinopril) 2.5 Mg Tab 2.5 MG PO QAM for 30 Days, #30 TAB 2 Refills Continued Medications: Epinephrine (Epipen) 0.3 Mg/0.3 Ml Inj 0.3 MG IM UD, INJ Admission Information HPI (per Admitting provider): DATE OF ADMISSION: 12/20/2017 PRIMARY CARE PHYSICIAN: Dr. Silvestre CHIEF COMPLAINT: Headache. HISTORY OF PRESENT ILLNESS: History obtained from the patient, , records. Medical history significant for hypertension (refusing medication as per ), breast cancer status post bilateral mastectomy, radiation, hormonal therapy, ongoing tobacco abuse, hypothyroidism as per records. Recent confinement under surgery service on 05/26/2013 for mastectomy. A few days history of headache symptoms front going to the back, with neck discomfort, no trauma, some vomiting, no chest pain, no shortness of breath, low-grade fever at home, transient slurred speech as per . Patient is achy all over. Unaware of any tick bites. No previous episodes in the past. At the Emergency Room, the patient was given acyclovir, ceftriaxone, Decadron for possible [employer] infection after LP done. MEDICAL HISTORY: As above. SURGERIES: Mastectomy bilateral, breast reconstruction procedures, partial thyroidectomy, bilateral tubal ligation. HOME MEDICATIONS: None ALLERGIES: ALLERGIC TO BEE STING. FAMILY HISTORY: Lung cancer. PERSONAL AND SOCIAL HISTORY: Half pack daily. No chronic intake of alcoholic beverages. Factory employee. REVIEW OF SYSTEMS: As per HPI. All 10 systems reviewed. All other ROS negative. PHYSICAL EXAMINATION: VITAL SIGNS: Blood pressure was noted to be 179/126, later 160/80, pulse rate 76, RR 18, temperature 36, sats 95 on room air. GENERAL: Noted to be uncomfortable, in no respiratory distress. SKIN: Normal color, warm. HEENT: [place] palpebral conjunctivae. No ptosis. Dry mucosa. NECK: Some limitation in flexion. Some posterior neck tenderness. CHEST: Occasional wheeze. No tenderness. HEART: RRR, no murmur. ABDOMEN: Some distention, nontender. EXTREMITIES: No edema, no gross deformities, no tenderness. NEUROLOGIC EXAMINATION: Coherent. No gross focality except for some limitation in neck flexion. LABORATORY DATA: Hemoglobin 14.6, hematocrit 40.1, white cell count 9.8, platelets 240. Sodium 137, potassium 3.8, chloride 102, CO2 27, BUN 16, creatinine 0.7, glucose 88. Procalcitonin was normal. UA ketones, occult blood. CT angio negative for pathology. CSF findings, WBC 416, total protein 91.1, clear, colorless, normal glucose. ASSESSMENT AND PLAN: 1. Headache with CSF pleocytosis not typical of bacterial meningitis Patient is not septic. poss viral meningitis vs noninfectious etio 2. Transient slurred speech secondary to illness ro TIA. 3. Hypertensive urgency Patient hesitant to take maintenance meds as per . 4. Breast cancer, status post-mastectomy, radiation. 5. Ongoing tobacco abuse. Observation PCU analgesia MRI of the brain, May need Neurology evaluation RE headache, abn csf Hold off on additional antibiotics and antivirals now until patient seen by Neurology initiate Lisinopril Nicotine patch p.r.n. DVT prophylaxis Lovenox subcutaneously. FULL CODE. Patient's requesting for updates from providers. Mr. Antonio Juárez at [phone]. Hospital Course This is a 52 year old female with a past medical history of hypertension, breast cancer s/p bilateral mastectomy, radiation, hormonal therapy, ongoing tobacco abuse - presents with headaches, subsequently found to have likely viral meningitis Meningitis, likely Viral - CSF analysis, likely viral meningitis - Lyme CSF pending - has been on Rocephin on the off chance that this is Lyme related - appreciate ID input - hoping to discharge today; will await ID input - can likely call with Lyme results if positive HTN - started on Lisinopril 2.5mg, which she was to take at home but has been non- complaint - will discharge with this dose Tobacco Use Disorder - cut down smoking from 1PPD to 1/2PPD - counseled on cessation, patient will attempt DVT ppx - ambulation FULL CODE Total time spent on discharge = 25 minutes This includes examination of the patient, discharge planning, medication reconciliation, and communication with other providers. Discharge Instructions Please follow-up with Dr. Stanton (covering for Dr. Silvestre) on December 25 at 12:45PM * You can return to work after seeing primary care * You are prescribed Lisinopril 2.5mg daily for blood pressure
== END 2017-12-22 16:15 | disposition home or self-care (01) ==
LOC: C.EDB 16:33 → C.MED 22:49 → UNDOADMOB 22:49 → CANRESERV 23:09 → EDBEDREQ 23:10 → ENRESERV 23:15 → C.MED 23:30
PROVIDERS: ADMIT Internal Medicine; ATTEND Family Medicine
DX: A87.9 Viral meningitis, unspecified (principal); I10 Essential (primary) hypertension; Z85.3 Personal history of malignant neoplasm of breast; Z90.13 Acquired absence of bilateral breasts and nipples; F17.200 Nicotine dependence, unspecified, uncomplicated; Z91.030 Bee allergy status